=== PATIENT | female | born 1995 | race Caucasian/White ===

== ENCOUNTER 2017-07-01 12:43 | Emergency (ER) | payer OTHER ==
[~2017-07-01] VITALS: Ht 160 cm; Wt 45.4 kg
[2017-07-01 12:52] VITALS: BP 129/86
--- NOTE | 2017-07-01 12:59 | NUR ---
PT AMBULATED TO BED 9
--- NOTE | 2017-07-01 13:06 | NUR ---
21Y/F BIB SELF C/O EPIGASTRIC PAIN, RADIATING TO THE BACK AND BL LOWER QUADRANT WITH NAUSEA. AAOX4 WITH EVEN AND STEADY GAIT; PATIENT STATES PAIN OF 10/10 AT THIS TIME; VSS; PATIENT POSITIONED FOR COMFORT; HOB ELEVATED; BEDRAILS UP X1; BED DOWN. ER MD MADE AWARE OF PT STATUS.
[2017-07-01] MEDS ORDERED: GLYCOPYRROLATE 0.2 MG/ML VIAL IM ONE (14:05)
[2017-07-01] MEDS ORDERED: KETOROLAC 60 MG/2 ML VIAL IM ONE (14:05)
[2017-07-01 14:25] VITALS: BP 122/71
--- NOTE | 2017-07-01 14:25 | NUR ---
Patient discharged with v/s stable. Written and verbal after care instructions given and explained. Patient alert, oriented and verbalized understanding of instructions. Ambulatory with steady gait. All questions addressed prior to discharge. ID band removed. Patient advised to follow up with PMD. Rx of LEVSIN given. Patient educated on indication of medication including possible reaction and side effects. Opportunity to ask questions provided and answered.
== END 2017-07-01 14:25 | disposition home or self-care (01) ==
LOC: MED 12:43
DX: K58.9 Irritable bowel syndrome, unspecified (principal); J45.909 Unspecified asthma, uncomplicated
CPT/HCPCS: 96372; 99284; J1885; J3490

== ENCOUNTER 2017-07-27 03:22 | Emergency (ER) | payer OTHER ==
[~2017-07-27] VITALS: Ht 160 cm; Wt 45.4 kg
[2017-07-27 03:29] VITALS: BP 114/71
[2017-07-27] MEDS ORDERED: KETOROLAC 30 MG/ML VIAL IM ONE (03:55)
[2017-07-27] MEDS ORDERED: KETOROLAC 15 MG/ML VIAL ONE (03:56)
[2017-07-27 04:47] VITALS: BP 115/75
== END 2017-07-27 04:47 | disposition home or self-care (01) ==
LOC: MED 03:22
DX: R07.89 Other chest pain (principal); F12.10 Cannabis abuse, uncomplicated; W22.03XA Walked into furniture, initial encounter; Y93.89 Activity, other specified; Y99.8 Other external cause status; Y92.89 Other specified places as the place of occurrence of the external cause
CPT/HCPCS: 71045; 81002; 81025; 96372; 99283; J1885